=== PATIENT | male | born 1980 | race Hispanic/Latino ===

== ENCOUNTER 2018-05-25 19:21 | Emergency (ER) | payer OTHER ==
[2018-05-25] MEDS ORDERED: SODIUM CHLORIDE 0.9% 1000ML 3,000 ML IV ONE (19:42)
[2018-05-25] MEDS ORDERED: ZOSYN 3.375GM+NS 50ML 50 ML IV ONE (19:43)
[2018-05-25] MEDS ORDERED: ACETAMINOPHEN 325 MG TAB ONE (19:43)
[2018-05-25] MEDS ORDERED: ACETAMINOPHEN-CODEINE 300/30MG TAB ONE (19:44)
[2018-05-25] MEDS ORDERED: SODIUM CHLORIDE 0.9% 50 ML IV ONE (19:47)
[2018-05-25] MEDS ORDERED: LIDOCAINE HCL 2% VISCOUS 15 ML UDCUP ONE (19:53)
[2018-05-25] MEDS ORDERED: MAG HYDROX/AL HYDROX/SIMETH ES 30 ML SUSP UDCUP ONE (19:53)
[2018-05-25] MEDS ORDERED: ONDANSETRON HCL 4 MG/2 ML VIAL ONE ×2 (19:57→22:21)
[2018-05-25] MEDS ORDERED: IBUPROFEN 600 MG TABLET ONE (20:02)
[2018-05-25 20:07] LABS: APPEARANCE,URINE Clear (CLEAR); BILIRUBIN,URINE Negative (NEGATIVE); COLOR,URINE Yellow (YELLOW); GLUCOSE, URINE (UA) >=1000 mg/dL (NEGATIVE); KETONES,URINE >=160 mg/dL (NEGATIVE); LEUKOCYTE ESTERASE ,URINE Negative (NEGATIVE); NITRATE,URINE Negative (NEGATIVE); OCCULT BLOOD,URINE Trace (NEGATIVE); PH,URINE 5.5 (5.0-8.0); PROTEIN,URINE POS 2+ (NEGATIVE)
[2018-05-25 20:11] LABS: RAPID GROUP A STREP NEGATIVE (NEGATIVE)
[2018-05-25 20:14] LABS: BASOPHILS % (AUTO) 1.3 % (0.0-5.0); HEMATOCRIT 49.6 % (42-54); LYMPHOCYTES % (AUTO) 13.3 % (21.0-51.0); MEAN CORPUSCULAR HEMOGLOBIN 29.6 pg (27.0-33.0); MEAN CORPUSCULAR HGB CONC 35.3 g/dL (32.0-36.0); MEAN CORPUSCULAR VOLUME 83.8 fL (79-99); MONOCYTES % (AUTO) 9.6 % (3.0-13.0); NEUTROPHILS % (AUTO) 75.8 % (40.0-77.0); NUCLEATED RED BLOOD CELLS 0.2 % (0.0-0.19); PLATELET COUNT (AUTO) 222 K/uL (130-400); RED BLOOD CELL COUNT(AUTO) 5.91 MIL/uL (4.50-6.20); RED CELL DISTRIBUTION WIDTH 12.3 % (11.0-15.5); WHITE BLOOD COUNT (AUTO) 10.6 K/uL (4.8-10.8)
[2018-05-25 20:21] LABS: BACTERIA,URINE Few /HPF (None Seen); RBC,URINE None Seen /HPF (0-1); SQUAMOUS EPITHELIAL CELL,UR None Seen /HPF (0-2); WBC,URINE 0-1 /HPF (0-1)
[2018-05-25 20:25] LABS: CREATININE 0.8 mg/dL (0.5-1.5); POTASSIUM 3.4 mmol/L (3.5-5.1)
[2018-05-25 20:30] LABS: ALBUMIN 3.2 g/dL (3.5-5.0); BILIRUBIN,TOTAL 1.1 mg/dL (0.2-1.0); TOTAL PROTEIN, SERUM 7.5 g/dL (6.0-8.3)
[2018-05-25] MEDS ORDERED: POTASSIUM BICARB/CIT AC 25 MEQ TABLET.EFF ONE (21:13)
[2018-05-25] MEDS ORDERED: MORPHINE SULFATE 4 MG/1ML SYG ONE (23:29)
== END 2018-05-25 23:44 | disposition home or self-care (01) ==
LOC: EDH 19:21
DX: K02.9 Dental caries, unspecified (principal); R50.9 Fever, unspecified; R10.9 Unspecified abdominal pain; R09.89 Other specified symptoms and signs involving the circulatory and respiratory systems; E11.9 Type 2 diabetes mellitus without complications; I10 Essential (primary) hypertension; Z87.891 Personal history of nicotine dependence
CPT/HCPCS: 36415; 71045; 80053; 81001; 82550; 83605; 83690; 84484; 85025; 87040 ×2; 87804 ×2; 87880; 93005; 96365; 96366; 96375; 99285; J2270; J2405 ×2; J2543; J7030

== ENCOUNTER 2018-06-29 18:54 | Inpatient (IN) | payer SELFPAY ==
[~2018-06-29] VITALS: Ht 185.4 cm; Wt 115.2 kg
[2018-06-29] MEDS ORDERED: ONDANSETRON HCL 4 MG/2 ML VIAL ONE (19:30)
[2018-06-29] MEDS ORDERED: FAMOTIDINE/PF 20 MG/2 ML VIAL IV ONE (19:31)
[2018-06-29 19:32] LABS: BASOPHILS % (AUTO) 0.6 % (0.0-5.0); LYMPHOCYTES % (AUTO) 7.8 % (21.0-51.0); MEAN CORPUSCULAR HEMOGLOBIN 29.6 pg (27.0-33.0); MEAN CORPUSCULAR VOLUME 84.6 fL (79-99); MONOCYTES % (AUTO) 5.7 % (3.0-13.0); NEUTROPHILS % (AUTO) 85.9 % (40.0-77.0); PLATELET COUNT (AUTO) 329 K/uL (130-400); RED BLOOD CELL COUNT(AUTO) 6.03 MIL/uL (4.50-6.20); RED CELL DISTRIBUTION WIDTH 13.4 % (11.0-15.5); WHITE BLOOD COUNT (AUTO) 19.5 K/uL (4.8-10.8)
[2018-06-29] MEDS ORDERED: SODIUM CHLORIDE 0.9% 1000ML 1,000 ML IV ONE (19:33)
[2018-06-29 19:48] LABS: CREATININE 0.8 mg/dL (0.5-1.5); POTASSIUM 3.6 mmol/L (3.5-5.1)
[2018-06-29 19:57] LABS: ALBUMIN 4.3 g/dL (3.5-5.0); BILIRUBIN,DIRECT 1.3 mg/dL (0.0-0.3); BILIRUBIN,TOTAL 2.4 mg/dL (0.2-1.0)
[2018-06-29] MEDS ORDERED: IOHEXOL-350 75 ML VIAL IV ONE (20:19)
[2018-06-29] MEDS ORDERED: SODIUM CHLORIDE 0.9% 1000ML 2,000 ML IV ONE (20:45)
[2018-06-29] MEDS ORDERED: MORPHINE SULFATE 2 MG/ML 1ML SYG ONE (20:45)
[2018-06-29 21:20] LABS: BILIRUBIN,URINE Negative (NEGATIVE); COLOR,URINE Yellow (YELLOW); GLUCOSE, URINE (UA) >=1000 mg/dL (NEGATIVE); KETONES,URINE 40 mg/dL (NEGATIVE); LEUKOCYTE ESTERASE ,URINE Negative (NEGATIVE); NITRATE,URINE Negative (NEGATIVE); OCCULT BLOOD,URINE Negative (NEGATIVE); PROTEIN,URINE Negative (NEGATIVE); UROBILINOGEN,URINE 0.2 mg/dL (0.2-1.0)
[2018-06-29 21:21] LABS: APPEARANCE,URINE CLEAR (CLEAR)
[2018-06-29 21:24] LABS: AMPHET/METH SCREEN,URINE NEGATIVE (NEGATIVE); BARBITURATE SCREEN, URINE NEGATIVE (NEGATIVE); BENZODIAZEPINES SCREEN,URINE NEGATIVE (NEGATIVE); CANNABINOID SCREEN,URINE POSITIVE (NEGATIVE); COCAINE SCREEN,URINE POSITIVE (NEGATIVE); OPIATE SCREEN,URINE NEGATIVE (NEGATIVE); PHENCYCLIDINE SCREEN,URINE NEGATIVE (NEGATIVE)
[2018-06-29 21:47] LABS: BACTERIA,URINE Rare /HPF (None Seen); RBC,URINE 0-1 /HPF (0-1); WBC,URINE 0-1 /HPF (0-1)
[2018-06-29 21:48] LABS: SQUAMOUS EPITHELIAL CELL,UR Rare /HPF (0-2)
[2018-06-29] MEDS: LACTATED RINGERS 1000ML 1,000 ML IV SCH (23:15)
[2018-06-29] MEDS ORDERED: POTASSIUM CHLORIDE 20MEQ/100ML 100 ML IV PRN (23:15)
[2018-06-29] MEDS ORDERED: MORPHINE SULFATE 4 MG/1ML SYG IV PRN (23:15)
[2018-06-29] MEDS ORDERED: LIDOCAINE HCL-MPF 1% 2ML VIAL IVP PRN (23:15)
[2018-06-29] MEDS ORDERED: MAGNESIUM 2GM PREMIX 50ML 50 ML IV PRN (23:15)
[2018-06-29] MEDS ORDERED: ONDANSETRON HCL MDV 20ML 2 MG/ML VIAL IVP PRN (23:15)
[2018-06-29 23:32] LABS: HEMOGLOBIN A1C 9.2 % (4.0-6.0)
[2018-06-29 23:34] LABS: MAGNESIUM 1.9 mg/dL (1.80-2.40)
[2018-06-29] MEDS ORDERED: LACTATED RINGERS 1000ML 1,000 ML IV ONE (23:46)
[2018-06-29 23:56] VITALS: BP 162/91
[2018-06-30] VITALS (13 sets, daily range): BP systolic 121–144; BP diastolic 71–85
[2018-06-30 00:35] LABS: CRP QUANTITATIVE 16.5 mg/L (0.00-9.0)
[2018-06-30] MEDS ORDERED: MORPHINE SULFATE 4 MG/1ML SYG ONE (00:47)
[2018-06-30 01:11] LABS: CHOLESTEROL 180 mg/dL (<200); HDL CHOLESTEROL 41 mg/dL (29-71); LDL DIRECT 130 mg/dL (0-99); TRIGLYCERIDES 58 mg/dL (30-200)
[2018-06-30] MEDS ORDERED: INSULIN HUMULIN R 100 UNIT/ML 3ML ONE (01:23)
[2018-06-30] MEDS: INSULIN HUMULIN R 100 UNIT/ML 3ML SQ SCH ×4 (01:30→17:04)
[2018-06-30] MEDS ORDERED: GLUCAGON 1MG KIT 1 MG ML IM PRN (01:30)
[2018-06-30] MEDS ORDERED: DEXTROSE 50%-WATER 50 ML DISP.SYRIN IV PRN (01:30)
[2018-06-30 04:35] LABS: BASOPHILS % (AUTO) 0.3 % (0.0-5.0); HEMATOCRIT 43.3 % (42-54); LYMPHOCYTES % (AUTO) 16.1 % (21.0-51.0); MEAN CORPUSCULAR HEMOGLOBIN 29.7 pg (27.0-33.0); MEAN CORPUSCULAR HGB CONC 35.2 g/dL (32.0-36.0); MEAN CORPUSCULAR VOLUME 84.5 fL (79-99); NEUTROPHILS % (AUTO) 76.6 % (40.0-77.0); PLATELET COUNT (AUTO) 226 K/uL (130-400); RED BLOOD CELL COUNT(AUTO) 5.13 MIL/uL (4.50-6.20); RED CELL DISTRIBUTION WIDTH 13.4 % (11.0-15.5); WHITE BLOOD COUNT (AUTO) 11.6 K/uL (4.8-10.8)
[2018-06-30 04:49] LABS: ALBUMIN 3.3 g/dL (3.5-5.0); BILIRUBIN,TOTAL 1.5 mg/dL (0.2-1.0); CREATININE 0.7 mg/dL (0.5-1.5); MAGNESIUM 2.4 mg/dL (1.80-2.40); POTASSIUM 3.7 mmol/L (3.5-5.1); TOTAL PROTEIN, SERUM 6.5 g/dL (6.0-8.3)
[2018-06-30] MEDS: LACTATED RINGERS 1000ML 1,000 ML IV SCH ×3 (05:55→19:15)
[2018-06-30] MEDS: FAMOTIDINE/PF 20 MG/2 ML VIAL IV SCH ×2 (08:33→20:29)
[2018-06-30] MEDS: ENOXAPARIN SODIUM 30 MG/0.3 ML SQ SCH (08:38)
[2018-06-30] MEDS: MORPHINE SULFATE 2 MG/ML 1ML SYG IV PRN (08:57)
[2018-06-30] MEDS ORDERED: IOHEXOL-350 50ML VIAL IV ONE (09:10)
[2018-06-30] MEDS ORDERED: PROPOFOL 10 MG/ML 20ML VIAL IV ONE ×2 (09:34→09:48)
[2018-06-30] MEDS ORDERED: MIDAZOLAM HCL 1 MG/ML 2ML VIAL ONE (09:35)
[2018-06-30] MEDS ORDERED: FENTANYL CITRATE PF 50 MCG/1 ML 2ML VIAL ONE (09:36)
[2018-06-30] MEDS ORDERED: LIDOCAINE HCL 2% 20ML ONE (09:39)
[2018-06-30] MEDS ORDERED: GLYCOPYRROLATE 0.2 MG/ML 5 ML VIAL ONE (09:40)
[2018-07-01] MEDS: LACTATED RINGERS 1000ML 1,000 ML IV SCH ×4 (00:58→21:57)
[2018-07-01 04:00] VITALS: BP 140/80
[2018-07-01 05:28] LABS: BASOPHILS % (AUTO) 0.3 % (0.0-5.0); EOSINOPHILS % (AUTO) 0.5 % (0.0-8.0); HEMATOCRIT 43.3 % (42-54); LYMPHOCYTES % (AUTO) 25.3 % (21.0-51.0); MEAN CORPUSCULAR HEMOGLOBIN 29.7 pg (27.0-33.0); MEAN CORPUSCULAR HGB CONC 34.9 g/dL (32.0-36.0); MEAN CORPUSCULAR VOLUME 85.1 fL (79-99); MONOCYTES % (AUTO) 7.1 % (3.0-13.0); NEUTROPHILS % (AUTO) 66.8 % (40.0-77.0); PLATELET COUNT (AUTO) 258 K/uL (130-400); RED BLOOD CELL COUNT(AUTO) 5.09 MIL/uL (4.50-6.20); RED CELL DISTRIBUTION WIDTH 13.6 % (11.0-15.5); WHITE BLOOD COUNT (AUTO) 8.3 K/uL (4.8-10.8)
[2018-07-01 05:45] LABS: ALBUMIN 3.1 g/dL (3.5-5.0); BILIRUBIN,TOTAL 2.2 mg/dL (0.2-1.0); CREATININE 0.8 mg/dL (0.5-1.5); POTASSIUM 4.2 mmol/L (3.5-5.1); TOTAL PROTEIN, SERUM 6.4 g/dL (6.0-8.3)
[2018-07-01] MEDS: INSULIN HUMULIN R 100 UNIT/ML 3ML SQ SCH ×5 (06:00→16:30)
[2018-07-01] MEDS: MORPHINE SULFATE 2 MG/ML 1ML SYG IV PRN ×2 (06:30→13:13)
[2018-07-01 08:11] VITALS: BP 144/84
[2018-07-01] MEDS: FAMOTIDINE/PF 20 MG/2 ML VIAL IV SCH ×2 (08:42→20:50)
[2018-07-01] MEDS: ENOXAPARIN SODIUM 30 MG/0.3 ML SQ SCH (08:43)
[2018-07-01 11:41] VITALS: BP 145/89
[2018-07-01 17:02] VITALS: BP 145/75
[2018-07-01 20:00] VITALS: BP 138/79
[2018-07-02] VITALS: BP 136/75
[2018-07-02 04:00] VITALS: BP 134/75
[2018-07-02] MEDS ORDERED: LACTULOSE 20 GM/30 ML UDCUP PO PRN (05:00)
[2018-07-02] MEDS ORDERED: LACTULOSE 20 GM/30 ML UDCUP ONE (05:01)
[2018-07-02] MEDS: MORPHINE SULFATE 2 MG/ML 1ML SYG IV PRN (05:02)
[2018-07-02 05:37] LABS: BASOPHILS % (AUTO) 0.4 % (0.0-5.0); EOSINOPHILS % (AUTO) 0.8 % (0.0-8.0); HEMATOCRIT 45.8 % (42-54); LYMPHOCYTES % (AUTO) 24.9 % (21.0-51.0); MEAN CORPUSCULAR HEMOGLOBIN 29.5 pg (27.0-33.0); MEAN CORPUSCULAR HGB CONC 34.5 g/dL (32.0-36.0); MEAN CORPUSCULAR VOLUME 85.5 fL (79-99); MONOCYTES % (AUTO) 8.7 % (3.0-13.0); NEUTROPHILS % (AUTO) 65.2 % (40.0-77.0); NUCLEATED RED BLOOD CELLS 0.1 % (0.0-0.19); PLATELET COUNT (AUTO) 228 K/uL (130-400); RED BLOOD CELL COUNT(AUTO) 5.36 MIL/uL (4.50-6.20); RED CELL DISTRIBUTION WIDTH 13.4 % (11.0-15.5); WHITE BLOOD COUNT (AUTO) 6.7 K/uL (4.8-10.8)
[2018-07-02 05:51] LABS: CREATININE 0.8 mg/dL (0.5-1.5); POTASSIUM 3.9 mmol/L (3.5-5.1)
[2018-07-02] MEDS: INSULIN HUMULIN R 100 UNIT/ML 3ML SQ SCH ×2 (06:22→11:30)
[2018-07-02 07:00] VITALS: BP 125/73
[2018-07-02] MEDS: ENOXAPARIN SODIUM 30 MG/0.3 ML SQ SCH ×2 (09:00→09:19)
[2018-07-02] MEDS: FAMOTIDINE/PF 20 MG/2 ML VIAL IV SCH (09:18)
[2018-07-02] MEDS: LACTATED RINGERS 1000ML 1,000 ML IV SCH (09:21)
[2018-07-02 11:00] VITALS: BP 158/91
== END 2018-07-02 12:42 | disposition home or self-care (01) | DRG 439 ==
LOC: EDH 18:54 → EDHIP 18:55 → 3CH 23:39
PROVIDERS: ADMIT Internal Medicine; ATTEND Internal Medicine
PROC: 0DJ08ZZ Inspection of Upper Intestinal Tract, Via Natural or Artificial Opening Endoscopic (ICD-10-PCS; principal; 2018-06-30)
DX: K85.90 Acute pancreatitis without necrosis or infection, unspecified (principal); R65.10 Systemic inflammatory response syndrome (SIRS) of non-infectious origin without acute organ dysfunction; E11.65 Type 2 diabetes mellitus with hyperglycemia; E66.9 Obesity, unspecified; K76.0 Fatty (change of) liver, not elsewhere classified; F14.10 Cocaine abuse, uncomplicated; F12.10 Cannabis abuse, uncomplicated; F10.10 Alcohol abuse, uncomplicated; Y90.9 Presence of alcohol in blood, level not specified; K86.89 Other specified diseases of pancreas; K29.50 Unspecified chronic gastritis without bleeding; Z91.19 Patient's noncompliance with other medical treatment and regimen; Z68.33 Body mass index [BMI] 33.0-33.9, adult; Z79.84 Long term (current) use of oral hypoglycemic drugs; Z87.891 Personal history of nicotine dependence; Z83.3 Family history of diabetes mellitus; Z82.49 Family history of ischemic heart disease and other diseases of the circulatory system
CPT/HCPCS: 36415; 43231; 74177; 76700; 76705; 80048; 80053; 80061; 80076; 80305; 81001; 82150; 82550; 82948; 83036; 83605; 83690; 83735; 84484; 85025; 86140; 87040; 93005; J1650; J1815; J2250; J2270; J2405; J2704; J3010; J3475; J3480; J3490; J7030; J7120; Q9967

== ENCOUNTER 2025-08-27 20:11 | Emergency (ER) | payer OTHER ==
[~2025-08-27] VITALS: Ht 185.4 cm; Wt 99.3 kg
--- NOTE | 2025-08-27 20:37 | ERN ---
ED Note History of Present Illness Stated Complaint: C/O PAIN TO LEFT EAR X 1 WK Chief Complaint: Earache Time Seen by MD: 20:14 Dictation: This is a 45-year-old male who presented to the emergency room with complaints of severe left earache for the past 1 week. He apparently went and saw his primary care physician and was told he had a lot of wax in his left ear. He picked up the ear wax cleaning system from [facility] and cleaned his left ear. He continued to have the pain also in the preauricular area right in front of the triggers and he went back to see his primary care physician who gave him ear drops-Cipro plus dexamethasone combination. He stated that it did not make any difference in pain and he continues to have severe pain in the left ear. Also indicated that recently he had multiple teeth extracted due to dental caries and cavities. No fever chills or rigors. He denied any pain in his teeth or oral c avity Temperature 98.8 pulse 107 respirations 20 blood pressure 155/65 with a pulse oximetry of 99% on room air Chronic medical problems include type 2 diabetes mellitus and history of typhus. Also history of cocaine and marijuana abuse Allergies: Coded Allergies: No Known Allergies (Unverified Allergy, Unknown, 06/30/18) Home Meds Active Scripts Prednisone (Prednisone) 20 Mg Tablet, 1 TAB PO AD for 6 Days, #14 TAB 0 Refills TAKE 1 TAB BY MOUTH THREE TIMES PER DAY X3 DAYS, THEN TAKE 1 TAB BY MOUTH TWICE A DAY X2 DAYS, THEN TAKE 1 TAB BY MOUTH ONCE A DAY X1 DAY. Prov:JANE ROMO MD 08/27/25 Amoxicillin/Potassium Clav (Augmentin 500-125 Tablet) 500 Mg-125 Mg Tablet, 1 TAB PO BID for 10 Days, #20 TAB 0 Refills Prov:JANE ROMO MD 08/27/25 Ketorolac Tromethamine (Toradol) 10 Mg Tab, 10 MG PO QID for pain for 5 Days, #20 TAB 0 Refills Prov:JANE ROMO MD 08/27/25 Past Medical History Past Medical History: Diabetes-Type II Surgical History: None Family History: Negative Social History: Drugs (COCAINE AND MARIJUANA ABUSE) RN Note Reviewed/Agreed w/PFSH: Yes Review of System Dictation Constitutional: Negative for fever,chills, and weight loss Eyes: Negative for injury, pain,redness, and discharge ENT: Positive for preauricular,pain or left earache, positive for feeling of ear clogging and unable to hear Cardiovascular: Negative for chest pain, palpitations, and edema Respiratory: Negative for shortness of breath, cough, and wheezing, Abdomen/GI: Negative for abdominal pain, nausea, vomiting, diarrhea, and constipation Back: Negative for injury and pain : Negative for injury, bleeding and discharge MS/Extremity: Negative for injury and deformity Skin: Negative for rash, and discoloration Neuro: Negative for headache, weakness, numbness, tingling, and seizure Psych: Negative for suicide ideation, homicidal ideation, and hallucinations Initial Vital Sign VS Vital Signs Date Time Temp Pulse Resp B/P (MAP) Pulse Ox O2 Delivery O2 Flow Rate FiO2 08/27/25 20:13 98.8 107 20 155/65 99 Room Air 08/27/25 21:32 0 21 Physical Exam Dictation General: awake, alert, NAD Head/Face: Normocephalic, atraumatic no facial swelling Eyes: PERRL, EOMI, vision at baseline ENT: oral cavity clear, TMs clear, missing teeth, dental caries and cavities with severe gingivitis, bad breath. Mild swelling in front of the tragus. Left ear external auditory canal saavedra are very swollen and I am unable to visualize the tympanic membrane. Neck: Trachea midline, supple, no nuchal rigidity Cardiovascular: RRR, normal S1/S2, No MRGs, no JVD Respiratory: CTAB, no respiratory distress, No rales or wheezes Abdomen: Soft, non-tender, non-distended, normal bowel sounds, no guarding or rebound. Skin: Warm, dry, normal turgor, no rash MS/Extremity: Pulses equal, no cyanosis, neurovascular intact, FROM Neuro: COAx4, GCS 15, strength 5/5, CN 2-12 intact, normal cerebellar exam, normal gait, Psych: Normal behavior, mood, and affect normal Extremities-trace edema without any palpable cords, Homans sign is negative ED Course ED Course Orders Procedure Category Date Status Time Ketorolac PHA 08/27/25 Complete Tromethamine 30mg/Ml 21:30 Dexamethasone 4mg/Ml PHA 08/27/25 Complete 1ml Vial (Dexametha 21:30 Current Medications Medications (Trade) Dose Ordered Sig/Ximena Route PRN Reason Start Time Stop Time Status Last Admin Dose Admin Dexamethasone Sodium Phosphate (dexaMETHasone 4MG/ML 1ML VIAL) 6 mg ONCE ONCE IM 08/27/25 21:30 08/27/25 21:31 DC 08/27/25 21:31 Ketorolac Tromethamine (toRADol) 30 mg ONCE ONCE IM 08/27/25 21:30 08/27/25 21:31 DC 08/27/25 21:31 Vital Signs Date Time Temp Pulse Resp B/P (MAP) Pulse Ox O2 Delivery O2 Flow Rate FiO2 08/27/25 21:32 98.8 105 19 155/65 99 Room Air* 0 21 08/27/25 20:13 98.8 107 20 155/65 99 Room Air Medical Decision Making MDM Differential diagnosis: Otitis externa, otitis media, TMJ inflammation, sinusitis, TMJ jaw clenching or teeth grinding, referred pain from the dental issues This is a 45-year-old male who presented to the emergency room with complaints of severe left earache for the past 1 week. He apparently went and saw his primary care physician and was told he had a lot of wax in his left ear. He picked up the ear wax cleaning system from [facility] and cleaned his left ear. He continued to have the pain also in the preauricular area right in front of the triggers and he went back to see his primary care physician who gave him ear drops-Cipro plus dexamethasone combination. He stated that it did not make any difference in pain and he continues to have severe pain in the left ear. Also indicated that recently he had multiple teeth extracted due to dental caries and cavities. No fever chills or rigors. He denied any pain in his teeth or oral cavity Temperature 98.8 pulse 107 respirations 20 blood pressure 155/65 with a pulse oximetry of 99% on room air Chronic medical problems include type 2 diabetes mellitus and history of typhus. Also history of cocaine and marijuana abuse Responded to NSAID. I updated him on my thought process and recommended outpatient steroid and bronchodilator along with a an NSAID. Verbalized understanding Previous outside records reviewed: Old ER visits. Risk of complication and/or morbidity or mortality of patient management: None Medications-Per medication reconciliation Need for hospitalization: Patient does not meet criteria for hospitalization. Need for emergency major/minor surgery: No There are no social concerns with this patient. Prescription drug management Prescriptions will include symptomatic care Patient's prior external medical records from other ER visits were reviewed by [facility] as indicated. Prior testing and results from previous visits were reviewed. Prior tests were taken into account with medical decision making and resource utilization, independent historian/historians were used to obtain complete medical history. I independently interpreted the test that were performed, results were reviewed by me and considered findings on radiology if ordered. Medical management and examination interpretation discussions were had by me with other qualified healthcare professionals as indicated for the patient's care. Problem List Problem List: (1) Earache on left (2) Earache, otogenic (3) Pyorrhea gum disease (4) Otitis externa (5) Dental caries DX & DISP Disposition: Discharge Departure Impression: Primary Impression: Otitis externa Additional Impressions: Earache on left, Earache, otogenic, Dental caries, Pyorrhea gum disease Condition: Stable Scripts Prednisone (Prednisone) 20 Mg Tablet 1 TAB PO AD for 6 Days, #14 TAB 0 Refills TAKE 1 TAB BY MOUTH THREE TIMES PER DAY X3 DAYS, THEN TAKE 1 TAB BY MOUTH TWICE A DAY X2 DAYS, THEN TAKE 1 TAB BY MOUTH ONCE A DAY X1 DAY. Prov: JANE ROMO MD 08/27/25 Amoxicillin/Potassium Clav (Augmentin 500-125 Tablet) 500 Mg-125 Mg Tablet 1 TAB PO BID for 10 Days, #20 TAB 0 Refills Prov: JANE ROMO MD 08/27/25 Ketorolac Tromethamine (Toradol) 10 Mg Tab 10 MG PO QID for pain for 5 Days, #20 TAB 0 Refills Prov: JANE ROMO MD 08/27/25 Additional Instructions: Patient and the caregiver have been informed of all the diagnostic tests and the imaging conducted during the today's visit to the emergency room and has verbalized understanding of the results I have personally reviewed and interpreted all diagnostic exams performed here in the ER today as well as the vital signs documented by the nursing staff. The patient is now being discharged to home and should follow up with the primary care physician or the specialist as directed by the ER staff. Good oral hygiene brushing teeth twice a day Continue to follow with the oral surgeon Referrals: CHAPITO GREEN MD (PCP) JANE ROMO MD Aug 27, 2025 20:37
[2025-08-27 21:32] VITALS: BP 155/65; PULSE 105; RESP 19; TEMP 98.8; O2SAT 99
[2025-08-27] MEDS ORDERED: AMOX-426 PO (21:35)
[2025-08-27] MEDS ORDERED: PRED20TA3 PO (21:35)
[2025-08-27] MEDS ORDERED: KETO10 PO (21:35)
== END 2025-08-27 22:17 | disposition home or self-care (01) ==
LOC: EDH 20:11
DX: H92.02 Otalgia, left ear (principal); K02.9 Dental caries, unspecified; K05.30 Chronic periodontitis, unspecified; E11.9 Type 2 diabetes mellitus without complications; F12.10 Cannabis abuse, uncomplicated; F14.10 Cocaine abuse, uncomplicated
CPT/HCPCS: 99284; 96372 ×2; J1100; J1885